=== PATIENT | male | born 1995 | race Caucasian/White ===

== ENCOUNTER 2017-01-21 06:58 | Inpatient (IN) | payer BC ==
[~2017-01-21 06:58] MED LIST: ALLOPURINOL300 M1 PO; AZITHROMYCIN250 M1 PO; COMPAZINE10 MG PO; GUAIFENESIN-CODE5 M1 PO; HYDROCODON-ACE1 EA16 PO; LEVAQUIN750 M1 PO; LORTAB 5-325 M1 EAC1 PO; NO HOME MEDICATION; PRILOSEC OTC20 M1 PO; SANCUSO; TUMS PO
[2017-01-24] MEDS ORDERED: NORCO 5-325 TA1 EACH PO (13:05)
[2017-01-24] MEDS ORDERED: ULTRAM50 M1 PO (13:06)
[2017-01-24] MEDS ORDERED: NEURONTIN300 M1 PO (13:07)
[2017-01-24] MEDS ORDERED: ZOFRAN4 M2 PO (13:07)
== END 2017-01-24 14:00 | DRG 164 ==
LOC: SHSC 06:58 → PACU 10:40 → PCUB 12:02
PROVIDERS: ADMIT Surgery
PROC: 0BTJ4ZZ Resection of Left Lower Lung Lobe, Percutaneous Endoscopic Approach (ICD-10-PCS; principal; 2017-01-21)
DX: R91.8 Other nonspecific abnormal finding of lung field (principal); C81.90 Hodgkin lymphoma, unspecified, unspecified site; Z85.71 Personal history of Hodgkin lymphoma
CPT/HCPCS: C1713; J0690; J1200; J1940; J2250; J2405; J3010; J7040; J7050; P9045

== ENCOUNTER 2017-02-07 13:06 | Day surgery (SDC) | payer BC ==
[~2017-02-07 13:06] MED LIST changes: +NEURONTIN300 M1 PO; +NORCO 5-325 TA1 EACH PO; +ULTRAM50 M1 PO; +ZOFRAN4 M2 PO
[2017-02-08] MEDS ORDERED: PERCOCET 10-321 EACH PO (17:19)
[2017-02-08] MEDS ORDERED: KEFLEX500 M4 PO (17:20)
== END 2017-02-08 18:21 ==
LOC: SRG 13:06 → SHSB 13:10 → ORE 14:23 → PACU 15:50 → 5WD 17:27
PROC: 07T10ZZ Resection of Right Neck Lymphatic, Open Approach (ICD-10-PCS; principal; 2017-02-07)
DX: R59.0 Localized enlarged lymph nodes (principal); K21.9 Gastro-esophageal reflux disease without esophagitis; C81.90 Hodgkin lymphoma, unspecified, unspecified site; Z79.899 Other long term (current) drug therapy; Z92.21 Personal history of antineoplastic chemotherapy; Z92.3 Personal history of irradiation; Z98.890 Other specified postprocedural states
CPT/HCPCS: J0690; J1170; J2270; J2405